=== PATIENT | female | born 1980 | race American Indian/Alaskan Native ===

== ENCOUNTER 2020-08-16 22:50 | Emergency (ER) | payer OTHER ==
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
[2020-08-17] MEDS ORDERED: LACTATED RINGERS 1,000 ML IV ONE
[2020-08-17 00:07] LABS: Amphetamine Screen,Urine PRESUMPTIVE NEGATIVE; Benzodiazepines Screen,Urine PRESUMPTIVE NEGATIVE; Cannabinoid Screen,Urine PRESUMPTIVE NEGATIVE; Cocaine Screen,Urine PRESUMPTIVE NEGATIVE; Methadone Screen,Urine PRESUMPTIVE NEGATIVE; Opiate Screen,Urine PRESUMPTIVE NEGATIVE
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
[2020-08-17 00:09] LABS: Bacteria,Urine 1+ /HPF (Negative); Bilirubin,Urine NEG (Negative); Blood,Urine NEG (Negative); Color,Urine Colorless (Yellow); Protein,Urine <15 mg/dL mg/dL (Negative); Urobilinogen,Urine < 2.0 mg/dL (<2.0)
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
[2020-08-17 00:34] LABS: Basophils % (Auto) 0.1 % (0.0-1.8); Hematocrit 37.3 % (30.3-42.9); Hemoglobin 11.9 gm/dl (10.1-14.3); Lymphocytes # (Auto) 1.9 K/mm3 (1.2-5.4); Lymphocytes % (Auto) 12.6 % (13.4-35.0); Mean Corpuscular HGB Conc 32 % (30-34); Mean Corpuscular Volume 84 fl (79-97); Monocytes % (Auto) 6.4 % (0.0-7.3); Platelet Count 332 K/mm3 (140-440); Red Blood Count 4.44 M/mm3 (3.65-5.03); Red Cell Distribution Width 18.3 % (13.2-15.2)
[2020-08-17 00:52] LABS: Alanine Aminotransferase 14 units/L (7-56); Albumin 4.7 g/dL (3.9-5); BUN/Creatinine Ratio 13; Blood Urea Nitrogen 10 mg/dL (7-17); Calcium 9.7 mg/dL (8.4-10.2); Hemolysis Index 2
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
[2020-08-17 02:22] LABS: INR 1.01 (0.87-1.13)
[2020-08-17 02:23] LABS: Partial Thromboplastin Time 28.5 Sec. (24.2-36.6)
[2020-08-17 03:40] VITALS: BP 128/76
== END 2020-08-17 03:15 ==
LOC: ED 22:50
DX: S71.121A Laceration with foreign body, right thigh, initial encounter (principal); F10.929 Alcohol use, unspecified with intoxication, unspecified; V49.49XA Driver injured in collision with other motor vehicles in traffic accident, initial encounter; Y92.410 Unspecified street and highway as the place of occurrence of the external cause; Y93.89 Activity, other specified; Y99.8 Other external cause status
CPT/HCPCS: 12032; 36415; 70450; 71260; 72125; 73502; 74177; 80053; 80307; 81001; 84703; 85025; 85610; 85730; 86850; 86900; 86901; 96360; 99285; J7120; Q9967; 80320; G0480